=== PATIENT | female | born 1985 | race Caucasian/White ===

== ENCOUNTER → 2017-10-17 | Outpatient (CLI) | payer SELFPAY | LOC: COL.LAB 08:51 | DX: Z01.89 Encounter for other specified special examinations (principal) ==

== ENCOUNTER → 2019-04-14 | Outpatient (CLI) | payer SELFPAY | LOC: COL.RAD 07:08 | DX: M89.38 Hypertrophy of bone, other site (principal) ==

== ENCOUNTER → 2019-07-17 | Outpatient (CLI) | payer SELFPAY | LOC: COL.RAD 12:34 | DX: M47.816 Spondylosis without myelopathy or radiculopathy, lumbar region (principal) ==

== ENCOUNTER 2020-04-19 18:15 | Emergency (ER) | payer SELFPAY ==
[~2020-04-19] VITALS: Ht 170.2 cm; Wt 55.5 kg
[2020-04-19 18:28] VITALS: TEMP 98.7
[2020-04-19 21:08] VITALS: BP 97/56; PULSE 62
== END 2020-04-19 21:10 | disposition home or self-care (01) ==
LOC: COL.ER 18:15
DX: I97.610 Postprocedural hemorrhage of a circulatory system organ or structure following a cardiac catheterization (principal); Z86.79 Personal history of other diseases of the circulatory system

== ENCOUNTER → 2020-04-20 | Outpatient (CLI) | payer SELFPAY ==
[2020-04-20 13:01] LABS: TROPONIN-I 0.129 ng/mL (0.000-0.035)
== END ==
LOC: ZCOL.LAB 10:42
PROVIDERS: Internal Medicine Interventional Cardiology
DX: I95.9 Hypotension, unspecified (principal)

== ENCOUNTER → 2020-04-20 | Outpatient (CLI) | payer SELFPAY | LOC: COL.LAB 15:03 → COL.RAD 15:08 | DX: R79.89 Other specified abnormal findings of blood chemistry (principal); R79.1 Abnormal coagulation profile | CPT/HCPCS: Q9967 ==

== ENCOUNTER → 2022-03-19 | Outpatient (CLI) | payer SELFPAY | LOC: COL.RAD 08:15 | DX: N18.2 Chronic kidney disease, stage 2 (mild) (principal) ==

== ENCOUNTER → 2022-04-16 | Outpatient (CLI) | payer SELFPAY | LOC: COL.RAD 10:54 | DX: N18.2 Chronic kidney disease, stage 2 (mild) (principal) | CPT/HCPCS: A9562 ==

== ENCOUNTER → 2023-07-30 | Outpatient (CLI) | payer SELFPAY | LOC: COL.RAD 07:38 | DX: M48.02 Spinal stenosis, cervical region (principal); M50.322 Other cervical disc degeneration at C5-C6 level; M05.79 Rheumatoid arthritis with rheumatoid factor of multiple sites without organ or systems involvement; M19.90 Unspecified osteoarthritis, unspecified site ==

== ENCOUNTER → 2023-08-20 | Outpatient (CLI) | payer SELFPAY | LOC: COL.RAD 09:00 | DX: R00.2 Palpitations (principal) ==

== ENCOUNTER → 2024-04-07 | Outpatient (CLI) | payer SELFPAY | LOC: COL.RAD 08-22 08:12 → MC.RAD 08:12 | DX: Z12.31 Encounter for screening mammogram for malignant neoplasm of breast (principal) ==

== ENCOUNTER 2024-05-21 04:30 | Emergency (ER) | payer SELFPAY ==
[~2024-05-21] VITALS: Ht 170.2 cm; Wt 61.4 kg
[2024-05-21 04:41] VITALS: TEMP 98.2
[2024-05-21] MEDS ORDERED: NS 1,000 ML IV ONE (05:00)
[2024-05-21] MEDS ORDERED: diphenhydrAMINE 50 MG/ML 1 ML VIAL IV ONE (05:00)
[2024-05-21 05:12] LABS: BASO % 0.7 % (0.0-2.0); EOS # 0.1 K/mm3 (0.0-0.7); EOS % 1.4 % (0.0-4.0); GRAN % 51.2 % (42.2-75.2); HEMATOCRIT 44.1 % (37.0-47.0); HEMOGLOBIN 14.6 g/dl (12.5-16.0); LYMPH # 2.3 K/mm3 (1.2-3.4); LYMPH % 38.2 % (20.0-51.0); MEAN CELL VOLUME 88 fl (80.0-100.0); MEAN CORPUSCULAR HEMOGLOBIN 29 pg (27-31); MEAN CORPUSCULAR HGB CONC 33 g/dl (33.0-37.0); MEAN PLATELET VOLUME 10.3 fl (7.4-10.4); MONO # 0.5 K/mm3 (0.1-0.6); MONO % 8.3 % (1.7-9.3); PLATELET COUNT 213 K/mm3 (130-400)
[2024-05-21 05:15] LABS: PROTHROMBIN TIME 10.6 SECONDS (9.7-12.8)
[2024-05-21 05:18] LABS: PARTIAL THROMBOPLASTIN TIME 22.7 SECONDS (26.0-37.0)
[2024-05-21 05:29] LABS: CALCIUM 9.2 mg/dL (8.4-10.2); CREATININE, serum 0.94 mg/dL (0.57-1.11); POTASSIUM 3.5 mEq/L (3.5-4.5); TOTAL PROTEIN 7.3 g/dl (6.2-8.1)
[2024-05-21] MEDS ORDERED: Iohexol 300 - 100 ML VIAL IV ONE (05:34)
[2024-05-21 05:35] LABS: TROPONIN-I 0.014 ng/mL (0.00-0.033)
[2024-05-21 05:38] LABS: COLLECTION METHOD CLEAN CATCH
[2024-05-21] MEDS ORDERED: NS 50 ML IV ONE (05:39)
[2024-05-21 05:41] LABS: URINE APPEARANCE CLEAR (CLEAR/HAZY); URINE BLOOD NEGATIVE (NEGATIVE); URINE COLOR YELLOW (YELLOW); URINE GLUCOSE NEGATIVE (NEGATIVE); URINE KETONE TRACE (NEGATIVE); URINE NITRATE NEGATIVE (NEGATIVE); URINE PROTEIN(semi-quant) NEGATIVE (NEGATIVE); URINE UROBILINOGEN 0.2 E.U/dL (0.2-1.0)
[2024-05-21] MEDS ORDERED: CLARITIN 1010 MG/TAB PO (05:51)
[2024-05-21] MEDS ORDERED: DULCOLAX S10 MG/SUPP RC (05:51)
[2024-05-21] MEDS ORDERED: GLYCERIN S1 SUPP.REC RC (05:51)
[2024-05-21] MEDS ORDERED: LOTREXONE1.5 MG PO (05:52)
[2024-05-21] MEDS ORDERED: [UNRECOGNIZED DRUG - CODE] PO (05:52)
[2024-05-21] MEDS ORDERED: MAGNESIUM CITR100 MG PO (05:53)
[2024-05-21] MEDS ORDERED: TYLENOL 500MG500 MG PO (05:53)
[2024-05-21] MEDS ORDERED: VITAMINC1000TA PO (05:53)
[2024-05-21] MEDS ORDERED: VITAMIN D31000 I1 PO (05:53)
[2024-05-21 08:09] VITALS: BP 104/63; PULSE 68
[2024-06-01] MEDS ORDERED: BENADRYL25 M2 PO (14:13)
== END 2024-05-21 08:09 | disposition home or self-care (01) ==
LOC: COL.ER 04:30
PROVIDERS: Emergency Medicine
DX: R07.89 Other chest pain (principal); R10.9 Unspecified abdominal pain
CPT/HCPCS: J1200; J2765; J7030; Q9967

== ENCOUNTER → 2024-05-27 | Outpatient (CLI) | payer SELFPAY ==
[~2024-05-27] MED LIST: BENADRYL25 M2 PO; CLARITIN 1010 MG/TAB PO; DULCOLAX S10 MG/SUPP RC; GLYCERIN S1 SUPP.REC RC; LOTREXONE1.5 MG PO; MAGNESIUM CITR100 MG PO; TYLENOL 500MG500 MG PO; VITAMIN D31000 I1 PO; VITAMINC1000TA PO; [UNRECOGNIZED DRUG - CODE] PO
== END ==
LOC: COL.RAD 14:03
DX: K58.1 Irritable bowel syndrome with constipation (principal)

== ENCOUNTER → 2024-06-08 | Outpatient (CLI) | payer SELFPAY | LOC: COL.RAD 05:41 | DX: K58.1 Irritable bowel syndrome with constipation (principal) ==